=== PATIENT | female | born 1970 | race Caucasian/White ===

== ENCOUNTER 2019-07-01 08:16 | Day surgery (SDC) | payer OTHER ==
[2019-07-01] MEDS ORDERED: FENTAnyl 50 MCG/ML VIAL (09:51)
[2019-07-01] MEDS ORDERED: PROPOFOL 40 ML (09:51)
[2019-07-01] MEDS ORDERED: LIDOCAINE 100 MG SYRINGE (09:51)
== END 2019-07-01 11:04 | disposition home or self-care (01) ==
LOC: GIL 08:16
DX: Z12.11 Encounter for screening for malignant neoplasm of colon (principal); K64.8 Other hemorrhoids; K21.9 Gastro-esophageal reflux disease without esophagitis; K29.30 Chronic superficial gastritis without bleeding
CPT/HCPCS: 43239; 84703; 88305; 88312